=== PATIENT | female | born 1985 | race Two or more races ===

== ENCOUNTER 2024-08-29 16:30 | Emergency (ER) | payer MEDICAID, OTHER ==
[~2024-08-29] VITALS: Ht 172.7 cm; Wt 100.0 kg
[2024-08-29 17:00] VITALS: BP 134/96; PULSE 95; RESP 16; O2SAT 97
== END 2024-08-29 19:43 | disposition left against medical advice (07) ==
LOC: ER 16:30
DX: S61.214A Laceration without foreign body of right ring finger without damage to nail, initial encounter (principal); Z53.21 Procedure and treatment not carried out due to patient leaving prior to being seen by health care provider; W26.0XXA Contact with knife, initial encounter; Y93.89 Activity, other specified; Y92.89 Other specified places as the place of occurrence of the external cause; Y99.8 Other external cause status